=== PATIENT | male | born 1995 | race Two or more races ===

== ENCOUNTER 2019-09-01 11:40 | Emergency (ER) | payer SELFPAY ==
[2019-09-01 11:47] VITALS: BP 148/75
--- NOTE | 2019-09-01 11:56 | ER Document Report ---
ED Medical Screen (RME) - General Chief Complaint: Rectal Bleeding Stated Complaint: RECTAL BLEEDING Time Seen by Provider: 09/01/19 11:51 - HPI Notes: 09/01/19 11:54 Patient is a 23-year-old male with no significant past medical history who presents complaining of 'symptoms of colon cancer' as he has been having intermittent abd cramps with red blood in the stool since 2012. No blood or pain in the past 2 days. He has had a colonoscopy before and no h/o colon CA in the family. No fever or recent illness. I have treated and performed a rapid initial assessment of this patient. A comprehensive ED assessment and evaluation of the patient, analysis of test results and completion of medical decision making process will be conducted by additional ED providers. PHYSICAL EXAMINATION: GENERAL: Well-appearing, well-nourished and in no acute distress. A&Ox4. Answers questions appropriately. - Related Data Allergies/Adverse Reactions: No Known Allergies Allergy (Unverified 09/01/19 11:47) Physical Exam - Vital signs Vitals: Temp Pulse Resp BP Pulse Ox 98.3 F 81 18 148/75 H 100 09/01/19 11:46 09/01/19 11:46 09/01/19 11:46 09/01/19 11:46 09/01/19 11:46 Course - Vital Signs Vital signs: Temp Pulse Resp BP Pulse Ox 98.3 F 81 18 148/75 H 100 09/01/19 11:46 09/01/19 11:46 09/01/19 11:46 09/01/19 11:46 09/01/19 11:46
--- NOTE | 2019-09-01 12:33 | ER Document Report ---
ED General - General Chief Complaint: Rectal Bleeding Stated Complaint: RECTAL BLEEDING Time Seen by Provider: 09/01/19 11:51 TRAVEL OUTSIDE OF THE [place] IN LAST 30 DAYS: No - HPI Patient complains to provider of: rectal bleeding Notes: Patient presents with intermittent bright red blood on the outside of his stool for the past 6 years. Patient has been seen in the past with his most recently 2016 with CAT scan and then he had a follow-up colonoscopy performed which are unremarkable. They were unable to identify the etiology of his bright red blood per rectum. No hemorrhoids. Has been intermittent in nature to be once a month he will have bright red blood in the outside of the stool this is painless. Has nausea vomiting, weakness, fatigue, weight loss. - Related Data Allergies/Adverse Reactions: No Known Allergies Allergy (Unverified 09/01/19 11:47) Past Medical History - Social History Smoking Status: Current Some Day Smoker Chew tobacco use (# tins/day): No Frequency of alcohol use: None Drug Abuse: None Family History: Other - Colon Cancer Patient has suicidal ideation: No Patient has homicidal ideation: No Past Surgical History: Reports: Hx Oral Surgery - wisdom teeth Review of Systems - Review of Systems Notes: REVIEW OF SYSTEMS: CONSTITUTIONAL: -fevers, -chills EENT: -eye pain, -difficulty swallowing, -nasal congestion CARDIOVASCULAR: -chest pain, -syncope. RESPIRATORY: -cough, -SOB GASTROINTESTINAL: -abdominal pain, -nausea, -vomiting, -diarrhea, red blood per rectum GENITOURINARY: -dysuria, -hematuria MUSCULOSKELETAL: -back pain, -neck pain SKIN: -rash or skin lesions. HEMATOLOGIC: -easy bruising or bleeding. LYMPHATIC: -swollen, enlarged glands. NEUROLOGICAL: -altered mental status or loss of consciousness, -headache, - neurologic symptoms PSYCHIATRIC: -anxiety, -depression. ALL OTHER SYSTEMS REVIEWED AND NEGATIVE. Physical Exam - Vital signs Vitals: Temp Pulse Resp BP Pulse Ox 98.3 F 81 18 148/75 H 100 09/01/19 11:46 09/01/19 11:46 09/01/19 11:46 09/01/19 11:46 09/01/19 11:46 - Notes Notes: PHYSICAL EXAMINATION: GENERAL: Well-appearing, well-nourished and in no acute distress. HEAD: Atraumatic, normocephalic. EYES: Pupils equal round and reactive to light, extraocular movements intact, sclera anicteric, conjunctiva are normal. ENT: nares patent, oropharynx clear without exudates. Moist mucous membranes. NECK: Normal range of motion, supple without lymphadenopathy LUNGS: Breath sounds clear to auscultation bilaterally and equal. No wheezes rales or rhonchi. HEART: Regular rate and rhythm without murmurs ABDOMEN: Soft, nontender, normoactive bowel sounds. No guarding, no rebound. No masses appreciated. EXTREMITIES: Normal range of motion, no pitting or edema. No cyanosis. NEUROLOGICAL: Cranial nerves grossly intact. Normal speech, normal gait. Normal sensory and motor exams. PSYCH: Normal mood, normal affect. SKIN: Warm, Dry, normal turgor, no rashes or lesions noted. Course - Re-evaluation Re-evalutation: 09/01/19 12:42 Well-appearing 23-year-old man presents with complaints of bright red blood per rectum. Denies weakness, fatigue, shortness of breath, weight loss, abdominal pain. 09/01/19 14:22 Since extensive lab work-up shows no anemia or any signs of infection. Patient has benign physical exam. Happily texting on his phone. Will discharge home improved follow-up with gastroenterology for possible colonoscopy. Given strict return precautions if anything should worsen or change please return - Vital Signs Vital signs: Temp Pulse Resp BP Pulse Ox 98.3 F 81 18 148/75 H 100 09/01/19 11:46 09/01/19 11:46 09/01/19 11:46 09/01/19 11:46 09/01/19 11:46 - Laboratory Result Diagrams: 09/01/19 12:52 09/01/19 12:52 Discharge - Discharge Clinical Impression: Rectal bleeding Condition: Stable Disposition: HOME, SELF-CARE Instructions: Rectal Bleeding, Unclear Cause ([facility]) Additional Instructions: Will up with gastroenterology for possible colonoscopy Referrals: TYRA MCPHERSON MD [ACTIVE STAFF] - Follow up as needed
[2019-09-01 13:13] LABS: ABSOLUTE EOSINOPHILS # (AUTO) 0.1 10^3/uL (0.0-0.6); ABSOLUTE LYMPHOCYTES (AUTO) 1.7 10^3/uL (0.5-4.7); ABSOLUTE MONOCYTES (AUTO) 0.4 10^3/uL (0.1-1.4); ABSOLUTE NEUT (AUTO) 2.5 10^3/uL (1.7-8.2); BASOPHILS % (AUTO) 0.9 % (0-2); EOSINOPHILS % (AUTO) 1.5 % (0-6); HEMATOCRIT 48.6 % (37.9-51.0); HEMOGLOBIN 16.6 g/dL (13.5-17.0); LYMPHOCYTES % (AUTO) 36.3 % (13-45); MEAN CORPUSCULAR HEMOGLOBIN 31.9 pg (27.0-33.4); MEAN CORPUSCULAR HGB CONC 34.3 g/dL (32.0-36.0); MEAN CORPUSCULAR VOLUME 93 fl (80-97); MONOCYTES % (AUTO) 8.2 % (3-13); PLATELET COUNT 205 10^3/uL (150-450); RED BLOOD COUNT 5.22 10^6/uL (4.35-5.55); SEGMENTED NEUTROPHILS % (AUTO) 53.1 % (42-78); TOTAL CELLS COUNTED % (AUTO) 100 %; WHITE BLOOD COUNT 4.7 10^3/uL (4.0-10.5)
[2019-09-01 13:36] LABS: ANION GAP 10 (5-19); BLOOD UREA NITROGEN 17 mg/dL (7-20); CALCIUM 10.1 mg/dL (8.4-10.2); CARBON DIOXIDE 29 mmol/L (22-30); CHLORIDE 101 mmol/L (98-107); GLUCOSE 79 mg/dL (75-110); POTASSIUM 4.3 mmol/L (3.6-5.0)
== END 2019-09-01 14:24 | disposition home or self-care (01) ==
LOC: ER 11:40
DX: K62.5 Hemorrhage of anus and rectum (principal); F17.210 Nicotine dependence, cigarettes, uncomplicated
CPT/HCPCS: 36415; 80048; 85025; 99283